=== PATIENT | female | born 1975 | race American Indian/Alaskan Native ===

== ENCOUNTER 2018-06-11 14:09 | Emergency (ER) | payer MEDICAID ==
[2018-06-11] MEDS ORDERED: KEPPRA 1,000 MG/NS 0.75% 100ML 1,000 MG/100 ML BAG IV ONE (15:26)
[2018-06-11] MEDS ORDERED: TENORMIN PO ONE ×2 (15:28→15:49)
[2018-06-11] MEDS ORDERED: TORADOL IV ONE (15:49)
[2018-06-11 16:42] LABS: Hematocrit 41.4 % (30.3-42.9); Hemoglobin 13.7 gm/dl (10.1-14.3); Hemolysis Index 9; Mean Corpuscular HGB Conc 33 % (30-34); Mean Corpuscular Hemoglobin 26 pg (28-32); Mean Corpuscular Volume 79 fl (79-97); Platelet Count 160 K/mm3 (140-440); Red Blood Count 5.28 M/mm3 (3.65-5.03)
[2018-06-11] MEDS ORDERED: K-DUR PO ONE ×2 (16:45→17:51)
[2018-06-11] MEDS ORDERED: NORMODYNE IV ONE ×2 (17:24→17:35)
[2018-06-11 17:32] LABS: BUN/Creatinine Ratio 6; Blood Urea Nitrogen 5 mg/dL (7-17); Calcium 9.1 mg/dL (8.4-10.2)
--- NOTE | 2018-06-11 17:51 | Emergency Department Report ---
ED Seizure HPI - General Chief Complaint: Seizure Stated Complaint: SEIZURE Time Seen by Provider: 06/11/18 15:25 Source: patient, EMS Mode of arrival: Stretcher Limitations: No Limitations - History of Present Illness Initial Comments: 43-year-old female with a history of seizures and hypertension presents to the hospital with seizure and elevated blood pressure. Seizure was witnessed and lasted about 5 minutes followed by 20 minute postictal state. Patient has mild tongue abrasion and denies urinary incontinence. She complains of a frontal 5/ 10 headache described as a "hunger headache". She denies focal numbness, focal weakness, blurry vision, or neck pain. She's been noncompliant with both her blood pressure medication atenolol 25 mg and Keppra 500 mg twice a day for the patient to 3 days. Patient states she's had seizures for several years and has never followed up with a neurologist as instructed. - Related Data Home Medications Medication Instructions Recorded Confirmed Last Taken Lisinopril/Hydrochlorothiazide 1 tab PO QDAY 07/05/15 08/23/15 07/04/15 [Zestoretic 20-12.5 mg] Previous Rx's Medication Instructions Recorded Last Taken Type Atenolol [Tenormin] 25 mg PO DAILY #30 tab 06/11/18 Unknown Rx levETIRAcetam [Keppra TAB] 500 mg PO BID #60 tablet 06/11/18 Unknown Rx Allergies Allergy/AdvReac Type Severity Reaction Status Date / Time aspirin AdvReac Swelling Verified 04/25/15 10:55 Penicillins AdvReac Swelling Verified 04/25/15 10:55 ED Review of Systems ROS: Stated complaint: SEIZURE Other details as noted in HPI Comment: All other systems reviewed and negative ED Past Medical Hx - Past Medical History Previous Medical History?: Yes Hx Hypertension: Yes Hx Seizures: Yes (noncompliant with medication) - Surgical History Past Surgical History?: Yes Additional Surgical History: Tubal Ligation - Social History Smoking Status: Never Smoker Substance Use Type: None - Medications Home Medications: Home Medications Medication Instructions Recorded Confirmed Last Taken Type Lisinopril/Hydrochlorothiazide 1 tab PO QDAY 07/05/15 08/23/15 07/04/15 History [Zestoretic 20-12.5 mg] Atenolol [Tenormin] 25 mg PO DAILY #30 tab 06/11/18 Unknown Rx levETIRAcetam [Keppra TAB] 500 mg PO BID #60 tablet 06/11/18 Unknown Rx ED Physical Exam - General Limitations: No Limitations - Other Other exam information: General: No limitations, patient is alert in no acute distress Head exam: Atraumatic, normocephalic Eyes exam: Normal appearance, pupils equal reactive to light, extraocular movements intact ENT: Moist mucous membrane, not abrasion to anterior tongue Neck exam: Normal inspection, full range of motion, no meningismus nontender Respiratory exam: Clear to auscultation bilateral, no wheezes, rales, crackles Cardiovascular: Normal rate and rhythm, normal heart sounds Abdomen: Soft, nondistended, and nontender, with normal bowel sounds, no rebound, or guarding Extremity: Full range of motion normal inspection no deformity Back: Normal Inspection, full range of motion, no tenderness Neurologic: Alert, oriented x3, cranial nerves intact, no motor or sensory deficit, [id number] function intact Psychiatric: normal affect, normal mood Skin: Warm, dry, intact ED Course Vital Signs 06/11/18 06/11/18 06/11/18 14:34 15:39 15:57 Temperature 98.7 F Pulse Rate 110 H 95 H Respiratory 18 Rate Blood Pressure 183/116 182/106 176/116 Blood Pressure [Right] O2 Sat by Pulse 98 99 Oximetry 06/11/18 06/11/18 06/11/18 16:00 16:11 16:30 Temperature Pulse Rate Respiratory 18 Rate Blood Pressure 160/103 187/119 Blood Pressure [Right] O2 Sat by Pulse 100 97 Oximetry 06/11/18 06/11/18 06/11/18 17:00 17:30 17:46 Temperature Pulse Rate 91 H Respiratory Rate Blood Pressure 168/107 170/113 Blood Pressure 153/89 [Right] O2 Sat by Pulse 98 99 Oximetry ED Medical Decision Making - Lab Data Result diagrams: 06/11/18 15:38 06/11/18 15:38 Lab Results 06/11/18 06/11/18 06/11/18 Range/Units 15:38 15:38 15:38 WBC 8.1 (4.5-11.0) K/mm3 RBC 5.28 H (3.65-5.03) M/mm3 Hgb 13.7 (10.1-14.3) gm/dl Hct 41.4 (30.3-42.9) % MCV 79 (79-97) fl MCH 26 L (28-32) pg MCHC 33 (30-34) % RDW 14.0 (13.2-15.2) % Plt Count 160 (140-440) K/mm3 Sodium 139 (137-145) mmol/L Potassium 3.3 L (3.6-5.0) mmol/L Chloride 101.6 (98-107) mmol/L Carbon Dioxide 24 (22-30) mmol/L Anion Gap 17 mmol/L BUN 5 L (7-17) mg/dL Creatinine 0.8 (0.7-1.2) mg/dL Estimated GFR > 60 ml/min BUN/Creatinine Ratio 6 % Glucose 114 H (65-100) mg/dL Calcium 9.1 (8.4-10.2) mg/dL Magnesium 2.20 (1.7-2.3) mg/dL HCG, Qual (Negative) 06/11/18 Range/Units 15:38 WBC (4.5-11.0) K/mm3 RBC (3.65-5.03) M/mm3 Hgb (10.1-14.3) gm/dl Hct (30.3-42.9) % MCV (79-97) fl MCH (28-32) pg MCHC (30-34) % RDW (13.2-15.2) % Plt Count (140-440) K/mm3 Sodium (137-145) mmol/L Potassium (3.6-5.0) mmol/L Chloride (98-107) mmol/L Carbon Dioxide (22-30) mmol/L Anion Gap mmol/L BUN (7-17) mg/dL Creatinine (0.7-1.2) mg/dL Estimated GFR ml/min BUN/Creatinine Ratio % Glucose (65-100) mg/dL Calcium (8.4-10.2) mg/dL Magnesium (1.7-2.3) mg/dL HCG, Qual Negative (Negative) - Medical Decision Making sz med noncompliance Received IV Keppra 1 g in ED toradol for ARBOLEDA Hypertension Uncontrolled secondary to medication noncompliance Received her dose of atenolol 25 mg bp further improved after Labetalol 10mg IV Hypokalemia Mild by mouth potassium provided - Differential Diagnosis seizure, noncompliance, hypertensive urgency, electrolyte abnormality Critical Care Time: No Critical care attestation.: If time is entered above; I have spent that time in minutes in the direct care of this critically ill patient, excluding procedure time. ED Disposition Clinical Impression: Seizure, Uncontrolled hypertension, Noncompliance with medication regimen, Hypokalemia Disposition: - TO HOME OR SELFCARE Is pt being admited?: No Does the pt Need Aspirin: No Condition: Stable Instructions: Hypertension (ED), Recurrent Seizures Adult (ED) Additional Instructions: Take the medication as prescribed. Follow up with either of the neurologist provided. Return if symptoms worsen as indicated by your discharge instructions Prescriptions: Atenolol [Tenormin] 25 mg PO DAILY #30 tab levETIRAcetam [Keppra TAB] 500 mg PO BID #60 tablet Referrals: MARCUS NGUYEN MD [Staff Physician] - 3-5 Days (Neurology) MAMTA COLE MD [Staff Physician] - 3-5 Days (Neurology) Time of Disposition: 17:48
[2018-06-11 17:53] VITALS: BP 170/113
== END 2018-06-11 17:57 | disposition home or self-care (01) ==
LOC: ED 14:09
DX: R56.9 Unspecified convulsions (principal); I10 Essential (primary) hypertension; E87.6 Hypokalemia; Z91.14 Patient's other noncompliance with medication regimen; Z98.51 Tubal ligation status; Z88.0 Allergy status to penicillin; Z79.82 Long term (current) use of aspirin
CPT/HCPCS: 36415; 80048; 83735; 84703; 85027; 96374; 96375; 99284; J1885; J1953